=== PATIENT | female | born 1970 | race Caucasian/White ===

== ENCOUNTER 2019-04-11 22:30 | Emergency (ER) | payer MEDICAID ==
[~2019-04-11] VITALS: Ht 160 cm; Wt 70.3 kg
[2019-04-11 22:37] VITALS: Ht 160 cm; Wt 70.3 kg
[2019-04-12 00:20] VITALS: BP 125/67
== END 2019-04-12 00:20 | disposition home or self-care (01) ==
LOC: ED 22:30
DX: M54.2 Cervicalgia (principal); R51 Headache; R13.10 Dysphagia, unspecified; Z88.8 Allergy status to other drugs, medicaments and biological substances; Z88.6 Allergy status to analgesic agent
CPT/HCPCS: J1885

== ENCOUNTER 2019-12-13 09:44 | Emergency (ER) | payer MEDICAID ==
[~2019-12-13] VITALS: Ht 162.6 cm; Wt 70.3 kg
[2019-12-13 09:54] VITALS: Ht 162.6 cm; Wt 70.3 kg
[2019-12-13 11:09] VITALS: BP 129/83
== END 2019-12-13 11:09 | disposition home or self-care (01) ==
LOC: ED 09:44
DX: M54.5 Low back pain (principal); Z88.8 Allergy status to other drugs, medicaments and biological substances
CPT/HCPCS: J1885; J3010; Q0162

== ENCOUNTER 2020-11-08 10:48 | Emergency (ER) | payer MEDICAID ==
[~2020-11-08] VITALS: Ht 160 cm; Wt 72.6 kg
[2020-11-08 10:55] VITALS: Ht 160 cm; Wt 72.6 kg
[2020-11-08 16:49] VITALS: BP 139/75
== END 2020-11-08 16:49 | disposition home or self-care (01) ==
LOC: ED 10:48
DX: N64.4 Mastodynia (principal)
CPT/HCPCS: 76641; J1885